=== PATIENT | male | born 1970 | race Native Hawaiian/Other Pacific Islander ===

== ENCOUNTER 2017-06-13 12:09 | Emergency (ER) | payer MEDICAID ==
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
[2017-06-13 14:42] VITALS: BP 123/69
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
== END 2017-06-13 15:23 | disposition home or self-care (01) ==
LOC: UCEAST 12:09
DX: M79.641 Pain in right hand (principal); M25.531 Pain in right wrist; M19.041 Primary osteoarthritis, right hand; F31.9 Bipolar disorder, unspecified; Z88.8 Allergy status to other drugs, medicaments and biological substances; Z87.891 Personal history of nicotine dependence
CPT/HCPCS: 99213; G0463

== ENCOUNTER 2020-10-21 03:59 | Inpatient (IN) ==
[2020-10-21 04:52] LABS: Urine Appearance Cloudy; Urine Bilirubin Negative (Negative); Urine Blood Negative (Negative); Urine Color Amber; Urine Glucose Negative (Negative); Urine Ketones Trace (Negative); Urine Nitrite Negative (Negative); Urine Protein 2+(100 mg/dL) (Negative); Urine Urobilinogen Negative (Negative)
[2020-10-21 04:59] LABS: ABS Basophils 0.1 10^3/ul (0-0.2); ABS Eosinophils 0.1 10^3/ul (0-0.6); ABS Lymphocytes 2.8 10^3/ul (1.0-4.8); ABS Monocytes 0.4 10^3/ul (0-0.8); ABS Neutrophils 5.6 10^3/ul (1.5-7.7); Eosinophil % 0.6 %; Hematocrit 48 % (42-52); Hemoglobin 16.8 g/dL (14.0-18.0); Lymphocyte % 31.2 %; Mean Corpuscular HGB Conc 35 g/dL (31-36); Mean Corpuscular Hemoglobin 33 pg (27-31); Mean Corpuscular Volume 93 fL (80-94); Nucleated Red Blood Cells % 0.1; Platelet Count 323 10^3/uL (150-450); Red Cell Distribution Width 14 % (10-15)
[2020-10-21 05:00] LABS: Urine Bacteria Absent (Absent); Urine Granular Casts Present (Absent); Urine Red Blood Cell 3+(>10/hpf) (Absent); Urine Squamous Epithelial Cell Present (Absent); Urine White Blood Cell 3+(>20/hpf) (Absent)
[2020-10-21 05:14] LABS: Urine Benzodiazepine Screen Presumptive Positive (None Detect); Urine Cannabinoids Screen None Detected (None Detect); Urine Opiates Screen None Detected (None Detect)
[2020-10-21 05:19] LABS: ALT 46 U/L (7-52); AST 32 U/L (13-39); Albumin 5.2 g/dL (3.2-5.2); Albumin/Globulin Ratio 2.4 (1-3); Alkaline Phosphatase 78 U/L (35-149); Anion Gap 12 mmol/L (2-11); Blood Urea Nitrogen 21 mg/dL (6-24); CO2 Carbon Dioxide 20 mmol/L (22-32); Calcium 9.5 mg/dL (8.6-10.3); Chloride 103 mmol/L (101-111); EGFR African American 72.7 (>60); EGFR Non-African American 60.1 (>60); Globulin 2.2 g/dL (2-4); Glucose 105 mg/dL (70-100); Potassium 4.3 mmol/L (3.5-5.0); Sodium 135 mmol/L (135-145); Total Protein 7.4 g/dL (6.4-8.9)
[2020-10-21 05:21] LABS: Alcohol, S 100 mg/dL (<10); Lithium < 0.10 mmol/L (0.6-1.2); Salicylate < 2.50 mg/dL (<30)
[2020-10-21 05:30] LABS: Acetaminophen < 15 mcg/mL
[2020-10-21 05:34] LABS: TSH Ultra Thyroid Stim Horm 1.75 mcIU/mL (0.34-5.60)
[2020-10-21] MEDS ORDERED: Al Hydrox/Mg Hydrox/Simet LIQ 30 ML UDC PO PRN (10:52)
[2020-10-21] MEDS: Multivitamins/Minerals TAB PO SCH (14:30)
[2020-10-21] MEDS: Nicotine GUM 4MG FRUIT FLAVOR PO PRN (16:39)
[2020-10-22] MEDS: Multivitamins/Minerals TAB PO SCH (08:04)
[2020-10-22 08:47] LABS: HDL Cholesterol 43.9 mg/dL
[2020-10-22] MEDS: Nicotine GUM 4MG FRUIT FLAVOR PO PRN ×3 (10:28→20:23)
[2020-10-23 08:17] VITALS: BP 150/96
[2020-10-23] MEDS: Multivitamins/Minerals TAB PO SCH (09:28)
[2020-10-23] MEDS: Nicotine GUM 4MG FRUIT FLAVOR PO PRN ×2 (09:30→13:04)
== END 2020-10-23 15:20 | disposition home or self-care (01) | DRG 754 ==
LOC: ED 03:59 → BSU 10:52
PROVIDERS: ADMIT Psychiatry & Neurology Psychiatry; ATTEND Psychiatry & Neurology Psychiatry